=== PATIENT | female | born 1980 | race Caucasian/White ===

== ENCOUNTER 2017-01-16 16:28 | Emergency (ER) | payer OTHER ==
[~2017-01-16] VITALS: Ht 167.6 cm; Wt 86.2 kg
[~2017-01-16 16:28] MED LIST: CLEOCIN HCL300 MG PO; LACTINEX1 TAB.CHEW PO
[2017-01-16 17:15] VITALS: BP 136/84
--- NOTE | 2017-01-16 18:03 | NUR ---
Patient ambulated to bed 07.
--- NOTE | 2017-01-16 18:10 | NUR ---
Dr. Forde evaluating patient at bedside.
--- NOTE | 2017-01-16 18:11 | NUR ---
36/F c/o RLQ pain x last night around 0300 accompanied with nausea, denies vomiting. Pt also reports diarrhea this morning. Pt c/o pain sharp, to RLQ, 04/05. AOX4, ambulatory with steady gait. Family at bedside. Pt appears calm and relaxed. No signs of distress noted.
--- NOTE | 2017-01-16 18:12 | NUR ---
Pt taken to CT via w/c.
--- NOTE | 2017-01-16 18:21 | NUR ---
Patient back from CT via wheelchair per tech.
--- NOTE | 2017-01-16 18:24 | NUR ---
Pt back from CT and in bed 7.
--- NOTE | 2017-01-16 18:30 | NUR ---
Patient appears to be resting comfortably in bed. Vital Signs within normal limits. Respirations even and unlabored. at bedside.
[2017-01-16] MEDS ORDERED: NACL 0.9% 1,000 ML IV ONE (19:00)
--- NOTE | 2017-01-16 19:16 | NUR ---
Pt report given to Jesus WOMACK. Transfer of care at this time.
[2017-01-16 19:45] VITALS: BP 135/73
--- NOTE | 2017-01-16 19:45 | NUR ---
Patient discharged with v/s stable. Written and verbal after care instructions given and explained. Patient alert, oriented and verbalized understanding of instructions. Ambulatory with steady gait. All questions addressed prior to discharge. ID band removed. Patient advised to follow up with PMD. Rx of NORCO 5MG-325MG PO given. Patient educated on indication of medication including possible reaction and side effects. Opportunity to ask questions provided and answered.
== END 2017-01-16 19:45 | disposition home or self-care (01) ==
LOC: MED 16:28
DX: N20.0 Calculus of kidney (principal)
CPT/HCPCS: 36415; 74176; 80053; 81001; 81025; 82150; 83690; 85025; 85610; 85730; 99285; J7030